=== PATIENT | female | born 2005 | race Caucasian/White ===

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

== ENCOUNTER → 2024-07-12 | Outpatient (CLI) | payer OTHER | END | disposition home or self-care (01) | LOC: RAD 16:25 | PROVIDERS: ATTEND Nurse Practitioner Family | DX: S99.921A Unspecified injury of right foot, initial encounter (principal); X58.XXXA Exposure to other specified factors, initial encounter; Y93.89 Activity, other specified; Y92.89 Other specified places as the place of occurrence of the external cause; Y99.8 Other external cause status ==

== ENCOUNTER 2024-11-21 21:42 | Emergency (ER) | payer OTHER ==
[~2024-11-21] VITALS: Ht 172.7 cm; Wt 95.8 kg
== END 2024-11-21 22:24 | disposition home or self-care (01) ==
LOC: ED 21:42
DX: O26.891 Other specified pregnancy related conditions, first trimester (principal); H53.8 Other visual disturbances; H57.12 Ocular pain, left eye; Z79.899 Other long term (current) drug therapy; Z3A.01 Less than 8 weeks gestation of pregnancy

== ENCOUNTER → 2024-11-28 | Outpatient (CLI) | payer OTHER | END | disposition home or self-care (01) | LOC: US 13:00 | PROVIDERS: ATTEND Nurse Practitioner Women's Health | DX: Z32.01 Encounter for pregnancy test, result positive (principal) ==

== ENCOUNTER 2025-01-25 07:28 | Emergency (ER) | payer OTHER ==
[~2025-01-25] VITALS: Ht 170.1 cm; Wt 99.1 kg
[2025-01-25 08:08] LABS: BASO # 0.0 10*3/uL (0.0-0.1); BASO % 0.1 % (0.0-1.0); EOS # 0.2 10*3/uL (0.0-0.4); EOS % 2.1 % (1.0-4.0); MEAN CELL VOLUME 82.6 fl (81.0-99.0); MEAN CORPUSCULAR HGB 28.6 pg (27.0-31.0); MEAN PLATELET VOLUME 9.3 fl (9.6-12.3); MONO # 0.5 10*3/uL (0.1-1.0); MONO % 5.3 % (3.0-9.0); NEUT # 7.5 10*3/uL (2.3-7.9); NEUT % 77.1 % (47.0-73.0); NUCLEATED RED BLOOD CELL 0.0 % (0.0-0.0); NUCLEATED RED BLOOD CELL 0.0 10*3/uL (0.0-0.0); PLATELET COUNT AUTOMATED 212 10*3/uL (130-400); RED CELL DISTRI WIDTH 12.7 % (0-14.5)
[2025-01-25 08:39] LABS: BUN 7 mg/dl (9-23)
[2025-01-25 08:40] LABS: BETA-HCG, QUANT 21541.0 mIU/mL (3-10)
[2025-01-25 08:57] LABS: BILIRUBIN Negative (Negative); BLOOD Negative (Negative); CLARITY Clear (Clear); COLOR Yellow (Yellow); KETONE Negative (Negative); LEUKO ESTERASE 3+ (Negative); NITRITE Negative (Negative); PH 6.5 (4.5-8.0); SPECIFIC GRAVITY 1.015 (1.001-1.030); UROBILINOGEN 1.0 E.U./dl (0.0-1.0)
[2025-01-25 09:38] LABS: BACTERIA 2+; CALCIUM OXALATE CRYSTALS 3+; EPITHELIAL CELLS 21-30; WBC 21-30 wbc/hpf (0-5); YEAST TRACE
[2025-01-25] MEDS ORDERED: AMOX-CLAV 875-1 EACH PO (09:50)
== END 2025-01-25 10:05 | disposition home or self-care (01) ==
LOC: ED 07:28
PROVIDERS: Emergency Medicine
DX: O46.92 Antepartum hemorrhage, unspecified, second trimester (principal); O23.42 Unspecified infection of urinary tract in pregnancy, second trimester; N39.0 Urinary tract infection, site not specified; Z79.899 Other long term (current) drug therapy; Z3A.15 15 weeks gestation of pregnancy

== ENCOUNTER 2025-01-28 19:49 | Emergency (ER) | payer OTHER ==
[~2025-01-28] VITALS: Ht 170.1 cm; Wt 98.1 kg
[~2025-01-28 19:49] MED LIST changes: +AMOX-CLAV 875-1 EACH PO
[2025-01-28] MEDS ORDERED: SODIUM CHLORIDE 0.9% 1,000 ML IV ONE (19:55)
[2025-01-28] MEDS ORDERED: Promethazine Hydrochloride 25 MG/ML VIAL IV ONE (19:55)
[2025-01-28 20:10] LABS: BASO # 0.0 10*3/uL (0.0-0.1); BASO % 0.2 % (0.0-1.0); EOS # 0.1 10*3/uL (0.0-0.4); EOS % 0.5 % (1.0-4.0); MEAN CELL VOLUME 81.4 fl (81.0-99.0); MEAN CORPUSCULAR HGB 28.0 pg (27.0-31.0); MEAN PLATELET VOLUME 9.2 fl (9.6-12.3); MONO # 0.7 10*3/uL (0.1-1.0); MONO % 4.2 % (3.0-9.0); NEUT # 11.9 10*3/uL (2.3-7.9); NEUT % 77.3 % (47.0-73.0); NUCLEATED RED BLOOD CELL 0.0 % (0.0-0.0); NUCLEATED RED BLOOD CELL 0.0 10*3/uL (0.0-0.0); PLATELET COUNT AUTOMATED 305 10*3/uL (130-400); RED CELL DISTRI WIDTH 12.2 % (0-14.5)
[2025-01-28 20:53] LABS: BETA-HCG, QUANT 22582.0 mIU/mL (3-10); BUN 6 mg/dl (9-23)
[2025-01-28] MEDS ORDERED: CEFPODOXIME PR100 M1 PO (21:02)
[2025-01-28] MEDS ORDERED: Ondansetron4 MG PO (21:02)
== END 2025-01-28 21:29 | disposition home or self-care (01) ==
LOC: ED 19:49
PROVIDERS: Internal Medicine
DX: O26.891 Other specified pregnancy related conditions, first trimester (principal); T78.40XA Allergy, unspecified, initial encounter; O23.41 Unspecified infection of urinary tract in pregnancy, first trimester; O21.8 Other vomiting complicating pregnancy; X58.XXXA Exposure to other specified factors, initial encounter; Z3A.16 16 weeks gestation of pregnancy

== ENCOUNTER 2025-02-24 16:43 | Emergency (ER) | payer OTHER ==
[~2025-02-24] VITALS: Ht 172.7 cm; Wt 99.8 kg
[~2025-02-24 16:43] MED LIST changes: +CEFPODOXIME PR100 M1 PO; +Ondansetron4 MG PO
[2025-02-24] MEDS ORDERED: ACETAMINOPHEN 325 MG TAB PO ONE (16:55)
== END 2025-02-24 17:45 | disposition home or self-care (01) ==
LOC: ED 16:43
DX: S93.601A Unspecified sprain of right foot, initial encounter (principal); Z88.1 Allergy status to other antibiotic agents; Z88.8 Allergy status to other drugs, medicaments and biological substances; W01.0XXA Fall on same level from slipping, tripping and stumbling without subsequent striking against object, initial encounter; Y93.89 Activity, other specified; Y92.89 Other specified places as the place of occurrence of the external cause; Y99.8 Other external cause status